=== PATIENT | male | born 1935 | race Caucasian/White ===

== ENCOUNTER 2018-07-01 05:20 | Day surgery (SDC) | payer MEDICARE, BC ==
[2018-07-01] VITALS (345 sets, daily range): BP systolic 119–164; BP diastolic 85–95; PULSE 83–136; TEMP 97.8–102.7; O2SAT 56–100
[~2018-07-01] VITALS: Ht 170.2 cm; Wt 111.6 kg
[~2018-07-01 05:20] MED LIST: ACCUPRIL10 M1 PO; ACCUPRIL10 MG PO; ACCURETIC 25 MG1 TAB PO; ALEVE 220MG220 MG PO; AMITRIPTYLINE H25 M1 PO; ASPIRIN 32325 MG/TAB PO; ASPIRIN E.C. 8181 MG PO; COLACE 100100 MG/CAP PO; COUMADIN PO; FERROUS SU325 MG/TAB PO; FOLIC ACID 40400 MCG PO; FOLIC ACID PO; GLUCOPHAGE1000 MG PO; HEADACHE RELIE1 EACH PO; HEADACHE RELIEF PO; INDOMETHACIN75 MG PO; MULTIPLE VITAMI1 TA5 PO; NEXIUM 40MG40 MG PO; NORCO 325 MG-51 TAB; NORCO 325 MG-7.1 TAB PO; OXECTA5 MG PO; POLY-IRON 150150 MG PO; PRILOSEC 20MG20 MG PO; ROXICODONE 55 MG/TAB PO; SENOKOT S 50 MG1 TAB PO; TYLENOL 325MG325 MG PO; TYLENOL 500MG500 MG PO; TYLENOL 650MG650 M2 PO; ULTRAM 50MG TAB50 MG; VITAMIN C500 MG PO; VITAMIN D PO; ZANTAC 150MG T150 MG PO; multivitamin capsule PO
[2018-07-01 22:00] LABS: CALCIUM 8.9 mg/dL (8.4-10.2); CREATININE, serum 1.14 mg/dL (0.66-1.25); POTASSIUM 4.2 mmol/L (3.4-5.0)
[2018-07-01 22:11] LABS: HEMATOCRIT 44.6 % (42.0-52.0); HEMOGLOBIN 14.8 g/dl (13.5-18.0); MEAN CELL VOLUME 88 fl (80.0-100.0); MEAN CORPUSCULAR HEMOGLOBIN 29 pg (27.0-31.0); MEAN CORPUSCULAR HGB CONC 33 g/dl (33.0-37.0); MEAN PLATELET VOLUME 9.3 fl (7.4-10.4); PLATELET COUNT 226 K/mm3 (130-400); RED BLOOD COUNT 5.08 M/mm3 (4.20-5.60); REDCELL DISTRIBUTION WIDTH-CV 13.2 % (11.5-14.5)
[2018-07-01 23:12] LABS: BAND 16 % (0-10); LYMPHOCYTE 2 % (20.0-51.0); NEUTROPHILS 79 % (42.0-75.2); PLATELET ESTIMATE NORMAL (NORMAL)
[2018-07-01 23:13] LABS: TOXIC GRANULATION PRESENT
[2018-07-02] VITALS (827 sets, daily range): BP systolic 115–148; BP diastolic 57–94; PULSE 97–114; TEMP 98–99.2; O2SAT 62–100
[2018-07-02 05:00] LABS: ARTERIAL BLD GAS TCO2 CT 28.8; ARTERIAL BLOOD GAS BASE EXCESS 2.7 (-2-2); ARTERIAL BLOOD GAS HCO3 27.5 meq/L (22-26); ARTERIAL BLOOD GAS PCO2 42.7 mmHg (35-45); ARTERIAL BLOOD GAS PO2 84.1 mmHg (80-100); ARTERIAL BLOOD GAS pH 7.43 (7.35-7.45)
[2018-07-02 05:29] LABS: HEMATOCRIT 42.7 % (42.0-52.0); HEMOGLOBIN 13.9 g/dl (13.5-18.0); MEAN CELL VOLUME 89 fl (80.0-100.0); MEAN CORPUSCULAR HEMOGLOBIN 29 pg (27.0-31.0); MEAN CORPUSCULAR HGB CONC 33 g/dl (33.0-37.0); MEAN PLATELET VOLUME 8.8 fl (7.4-10.4); PLATELET COUNT 218 K/mm3 (130-400); RED BLOOD COUNT 4.78 M/mm3 (4.20-5.60); REDCELL DISTRIBUTION WIDTH-CV 13.5 % (11.5-14.5)
[2018-07-02 05:39] LABS: CALCIUM 8.8 mg/dL (8.4-10.2); CREATININE, serum 0.99 mg/dL (0.66-1.25); POTASSIUM 4.4 mmol/L (3.4-5.0)
[2018-07-02 05:42] LABS: BAND 5 % (0-10); HYPOCHROMIA 1+; LYMPHOCYTE 3 % (20.0-51.0); NEUTROPHILS 91 % (42.0-75.2); PLATELET ESTIMATE NORMAL (NORMAL)
[2018-07-03 03:41] VITALS: BP 131/62; PULSE 101; TEMP 98.4
[2018-07-03 05:52] LABS: BASO % 0.2 % (0.0-2.0); EOS # 0.2 (0.0-0.7); EOS % 1.5 % (0-4.0); GRAN # 9.9 (1.4-6.5); GRAN % 82.3 % (42.2-75.2); HEMATOCRIT 38.7 % (42.0-52.0); HEMOGLOBIN 12.8 g/dl (13.5-18.0); LYMPH % 8.2 % (20.0-51.0); MEAN CELL VOLUME 89 fl (80.0-100.0); MEAN CORPUSCULAR HEMOGLOBIN 29 pg (27.0-31.0); MEAN CORPUSCULAR HGB CONC 33 g/dl (33.0-37.0); MEAN PLATELET VOLUME 9.7 fl (7.4-10.4); MONO # 0.9 (0.1-0.6); MONO % 7.1 % (1.7-9.3); PLATELET COUNT 190 K/mm3 (130-400); RED BLOOD COUNT 4.36 M/mm3 (4.20-5.60); REDCELL DISTRIBUTION WIDTH-CV 13.8 % (11.5-14.5)
[2018-07-03 06:07] LABS: CALCIUM 8.5 mg/dL (8.4-10.2); CREATININE, serum 0.88 mg/dL (0.66-1.25); POTASSIUM 3.9 mmol/L (3.4-5.0)
[2018-07-03 07:41] VITALS: BP 125/72; PULSE 104; TEMP 98.1
[2018-07-03 11:55] VITALS: BP 127/65; PULSE 93; TEMP 97.9
[2018-07-03 17:21] VITALS: BP 148/79; PULSE 100; TEMP 97.9
[2018-07-03 20:00] VITALS: BP 139/77; PULSE 82; TEMP 99.1
[2018-07-04 04:40] VITALS: BP 159/86; PULSE 94; TEMP 99.1
[2018-07-04 07:22] VITALS: BP 147/84; PULSE 81; TEMP 98.5
[2018-07-04 09:04] LABS: BASO % 0.3 % (0.0-2.0); EOS # 0.1 (0.0-0.7); EOS % 1.2 % (0-4.0); GRAN # 6.4 (1.4-6.5); GRAN % 82.9 % (42.2-75.2); HEMATOCRIT 37.6 % (42.0-52.0); HEMOGLOBIN 12.3 g/dl (13.5-18.0); LYMPH # 0.8 (1.2-3.4); LYMPH % 10.4 % (20.0-51.0); MEAN CELL VOLUME 89 fl (80.0-100.0); MEAN CORPUSCULAR HEMOGLOBIN 29 pg (27.0-31.0); MEAN CORPUSCULAR HGB CONC 33 g/dl (33.0-37.0); MEAN PLATELET VOLUME 9.7 fl (7.4-10.4); MONO # 0.4 (0.1-0.6); MONO % 4.8 % (1.7-9.3); PLATELET COUNT 187 K/mm3 (130-400); RED BLOOD COUNT 4.25 M/mm3 (4.20-5.60); REDCELL DISTRIBUTION WIDTH-CV 13.3 % (11.5-14.5)
[2018-07-04 09:11] LABS: CALCIUM 8.6 mg/dL (8.4-10.2); CREATININE, serum 0.7 mg/dL (0.66-1.25); POTASSIUM 3.5 mmol/L (3.4-5.0)
[2018-07-04] MEDS ORDERED: CIPRO 500MG TA500 MG PO (11:12)
[2018-07-04 12:28] VITALS: BP 163/80; PULSE 87; TEMP 97.8
[2018-07-04 16:02] VITALS: BP 142/78; PULSE 86; TEMP 98.1
== END 2018-07-04 17:55 | disposition home or self-care (01) ==
LOC: SDCO 05:20 → SURG 05:20 → ICU 05:20 → SDCO 07:30 → SURG 10:15 → ICU 19:16 → SURG 07-02 17:56 → SDCO 07-03 10:15 → SURG 07-03 10:15 → SDCO 07-04 07:34
PROVIDERS: Hospitalist; Nurse Practitioner; Urology
DX: N40.1 Benign prostatic hyperplasia with lower urinary tract symptoms (principal); R35.1 Nocturia; R33.8 Other retention of urine; R39.12 Poor urinary stream; N32.0 Bladder-neck obstruction; N32.89 Other specified disorders of bladder; Z91.048 Other nonmedicinal substance allergy status; J44.9 Chronic obstructive pulmonary disease, unspecified; D72.829 Elevated white blood cell count, unspecified; G47.33 Obstructive sleep apnea (adult) (pediatric); G89.29 Other chronic pain; M19.90 Unspecified osteoarthritis, unspecified site; I10 Essential (primary) hypertension; Z79.84 Long term (current) use of oral hypoglycemic drugs; Z79.4 Long term (current) use of insulin; Z80.0 Family history of malignant neoplasm of digestive organs; Z96.643 Presence of artificial hip joint, bilateral; Z87.891 Personal history of nicotine dependence; Z79.82 Long term (current) use of aspirin; Z91.040 Latex allergy status; Z88.8 Allergy status to other drugs, medicaments and biological substances; Z90.49 Acquired absence of other specified parts of digestive tract; Z98.52 Vasectomy status; K21.9 Gastro-esophageal reflux disease without esophagitis; E11.42 Type 2 diabetes mellitus with diabetic polyneuropathy
CPT/HCPCS: OP; 99223; 99232-AI; J0330; J0690; J0696; J1100; J1815; J2060; J2270; J2370; J2405; J2543; J2704; J3010; J3370; J3480; J7030; J7050; J7120

== ENCOUNTER 2021-01-26 06:57 | Observation (INO) | payer MEDICARE, BC ==
[2021-01-26] VITALS (12 sets, daily range): BP systolic 142–172; BP diastolic 71–96; PULSE 18–74; TEMP 97.2–98.6
[~2021-01-26] VITALS: Ht 170.3 cm; Wt 114.7 kg
[~2021-01-26 06:57] MED LIST changes: +CIPRO 500MG TA500 MG PO
[2021-01-26] MEDS ORDERED: INSPRA50 MG (07:41)
[2021-01-26] MEDS ORDERED: THEO-24 20200 MG/CAP PO (07:41)
[2021-01-26] MEDS ORDERED: BUMEX 1MG TA1 MG/TA1 PO (07:42)
[2021-01-26] MEDS ORDERED: ZEBETA10 MG PO (07:43)
[2021-01-26] MEDS ORDERED: NITRO-DUR0.1 MG/PAT TD (07:43)
[2021-01-26] MEDS ORDERED: XALATAN EYE DROPS OU (07:44)
--- NOTE | 2021-01-26 08:19 | NUR ---
PT ADMITTED TO ROOM [address] MICHAEL. IV TO RFA 20 GA WITH NS RUNNING. ASSESSMENTS COMPLETE. CONSENT SIGNED ON CHART. PT TO SURGERY AT THIS TIME.
--- NOTE | 2021-01-26 11:12 | NUR ---
PT TO ROOM 323 PER BED WITH REPORT FROM [facility] PACU @[id number]. PT IS A/O X4, VSS, LUNGS CTA, VOIDING, DENIES PAIN AT THIS TIME. B&O SUPPOSITORY GIVEN IN PERIOP. IV TO GRAVITY. AT BEDSIDE. ORIENTED PT AND FAMILY TO ROOM AND ROOM SERVICE. PT VERBALIZED UNDERSTANDING.
--- NOTE | 2021-01-26 11:27 | NUR ---
PT VOIDED PEACH COLORED URINE. NO CLOTS.
--- NOTE | 2021-01-26 13:31 | NUR ---
SW MET WITH THE PT WHO STATED HIS PREFERENCE TO RETURN HOME ONCE MEDICALLY STABLE. THE PT IS A [place]. THE PT LIVES AT HOME WITH HIS IN [place] , JIMI (PH#[phone] AND SON, PAYTON (PH#[phone]). THE PT IS INDEPENDENT. THE PT PCP IS DR.DAVID HAN AND GET HIS MEDICATIONS FROM [facility] AND HAS NO TROUBLES OBTAINING HIS MEDICATIONS. THE PT STATES HE HAS A DPOA-HC. NO OTHER NEEDS STATED AT THIS TIME. SW TO FOLLOW UP NEEDED. D/C: HOME WITH
--- NOTE | 2021-01-26 20:35 | NUR ---
Phoned Dr Salazar regarding pt discharge. New order given.
--- NOTE | 2021-01-26 20:45 | NUR ---
DC'D SL TO RT FOREARM, ANGIOCATH INTACT. REVIEWED DISCHARGE INSTRUCTIONS WITH PT AND SPOUSE. DR MICHAEL HERE WELL AND TALKS TO PT.
--- NOTE | 2021-01-26 20:50 | NUR ---
DISMISSED TO PRIVATE VEHICLE PER W/C. PERSONAL BELONGINGS SENT WITH PT WELL DISCHARGE INSTRUCTIONS.
== END 2021-01-26 20:50 | disposition home or self-care (01) ==
LOC: SURG 06:57
PROVIDERS: ADMIT Urology
DX: N20.1 Calculus of ureter (principal); R31.0 Gross hematuria; I10 Essential (primary) hypertension; J44.9 Chronic obstructive pulmonary disease, unspecified; G47.33 Obstructive sleep apnea (adult) (pediatric); K21.9 Gastro-esophageal reflux disease without esophagitis; M19.90 Unspecified osteoarthritis, unspecified site; M54.9 Dorsalgia, unspecified; G89.29 Other chronic pain; E11.9 Type 2 diabetes mellitus without complications; E11.42 Type 2 diabetes mellitus with diabetic polyneuropathy; Z99.89 Dependence on other enabling machines and devices; Z79.899 Other long term (current) drug therapy; Z79.84 Long term (current) use of oral hypoglycemic drugs; Z90.89 Acquired absence of other organs; Z98.52 Vasectomy status
CPT/HCPCS: C1769; C2617; G0378; G0379; J0690; J1100; J1885; J2405; J2704; J3010; J7030; Q9967

== ENCOUNTER 2021-07-10 13:52 | Day surgery (SDC) | payer MEDICARE, BC ==
[~2021-07-10] VITALS: Ht 170.2 cm; Wt 117.7 kg
[~2021-07-10 13:52] MED LIST changes: +BUMEX 1MG TA1 MG/TA1 PO; +INSPRA50 MG; +NITRO-DUR0.1 MG/PAT TD; +THEO-24 20200 MG/CAP PO; +XALATAN EYE DROPS OU; +ZEBETA10 MG PO
[2021-07-10 14:59] VITALS: BP 156/95; PULSE 74; TEMP 98.7
[2021-07-10] MEDS ORDERED: TYLENOL 8 HR PO (15:27)
[2021-07-10] MEDS ORDERED: INSPRA50 MG PO (15:30)
[2021-07-10] MEDS ORDERED: ACCUPRIL20TAB PO (15:31)
[2021-07-10] MEDS ORDERED: NEXIUM 24HR20 M1 PO (15:34)
[2021-07-10] MEDS ORDERED: PULMICORT0.25 MG/2 IH (15:35)
[2021-07-10] MEDS ORDERED: BROVANA15 MCG/2 M IH (15:35)
[2021-07-10] MEDS ORDERED: PROAIR HFA0.09 MG/AC IH (15:35)
[2021-07-10 17:35] VITALS: BP 136/72; PULSE 74
[2021-07-10 17:50] VITALS: BP 152/92; PULSE 77
[2021-07-10 17:51] VITALS: TEMP 97.5
[2021-07-10 18:05] VITALS: BP 147/98; PULSE 83
[2021-07-10 18:20] VITALS: BP 157/92; PULSE 56
--- NOTE | 2021-07-10 18:47 | NUR ---
PT DISCHARGE TEACHING COMPLETE. NO COMPLAINTS OF PAIN OR NAUSEA. NO SIGNS OR SYMPTOMS OF DISTRESS. PT ABLE TO EAT AND VOID WITHOUT ISSUE. PT VERBALIZES UNDERSTANDING OF ALL TEACHING. IV REMOVED. PT ESCORTED TO VEHICLE.
== END 2021-07-10 18:49 | disposition home or self-care (01) ==
LOC: SDCO 13:52
DX: N20.0 Calculus of kidney (principal); I48.91 Unspecified atrial fibrillation; I50.9 Heart failure, unspecified; I11.0 Hypertensive heart disease with heart failure; N39.0 Urinary tract infection, site not specified; G47.33 Obstructive sleep apnea (adult) (pediatric); G89.29 Other chronic pain; J44.9 Chronic obstructive pulmonary disease, unspecified; K21.9 Gastro-esophageal reflux disease without esophagitis; M19.90 Unspecified osteoarthritis, unspecified site; E11.42 Type 2 diabetes mellitus with diabetic polyneuropathy; Z79.84 Long term (current) use of oral hypoglycemic drugs; Z87.891 Personal history of nicotine dependence; Z79.899 Other long term (current) drug therapy; Z99.89 Dependence on other enabling machines and devices
CPT/HCPCS: C1769; C2617; J0690; J1100; J2405; J2704; J3010; J7030; Q9967